=== PATIENT | male | born 1980 | race Hispanic/Latino ===

== ENCOUNTER 2021-01-04 22:00 | Emergency (ER) | payer OTHER ==
[~2021-01-04] VITALS: Ht 165.1 cm; Wt 85.7 kg
[2021-01-04 22:21] VITALS: BP 119/72
[2021-01-04 22:43] LABS: BASOPHILS % (AUTO) 0.2 % (0.0-5.0); LYMPHOCYTES % (AUTO) 24.9 % (21.0-51.0); MEAN CORPUSCULAR HGB CONC 33.4 g/dL (32.0-36.0); MEAN CORPUSCULAR VOLUME 86.8 fL (79-99); MONOCYTES % (AUTO) 5.3 % (3.0-13.0); PLATELET COUNT (AUTO) 178 K/uL (130-400); RED BLOOD CELL COUNT(AUTO) 5.07 MIL/uL (4.50-6.20); WHITE BLOOD COUNT (AUTO) 5.3 K/uL (4.8-10.8)
[2021-01-04 22:50] LABS: CREATININE 1.1 mg/dL (0.5-1.5); POTASSIUM 3.6 mmol/L (3.5-5.1)
[2021-01-04 22:55] LABS: ALBUMIN 3.6 g/dL (3.5-5.0); BILIRUBIN,TOTAL 0.4 mg/dL (0.2-1.0); TOTAL PROTEIN, SERUM 7.4 g/dL (6.0-8.3)
[2021-01-05] MEDS ORDERED: ACETAMINOPHEN 500 MG TABLET PO ONE (00:45)
[2021-01-05] MEDS ORDERED: CEFTRIAXONE 1G VIAL ONE (00:58)
[2021-01-05] MEDS ORDERED: ACETAMINOPHEN 500 MG TABLET ONE (00:58)
[2021-01-05] MEDS ORDERED: CEFTRIAXONE 2GM VIAL IVP ONE (01:00)
[2021-01-05] MEDS ORDERED: 0.9%NACL 1000ML 1,000 ML IV ONE (01:00)
[2021-01-05] MEDS ORDERED: METH4TAB3 PO (01:16)
[2021-01-05] MEDS ORDERED: AZIT500T PO (01:16)
== END 2021-01-05 02:36 | disposition home or self-care (01) ==
LOC: EDH 22:00
DX: J18.9 Pneumonia, unspecified organism (principal)
CPT/HCPCS: 36415; 71045; 80053; 84484; 85025; 96361; 96374; 99284; J0696